=== PATIENT | male | born 1975 | race Caucasian/White ===

== ENCOUNTER 2023-09-25 05:38 | Emergency (ER) | payer OTHER ==
[~2023-09-25] VITALS: Ht 190.5 cm; Wt 117.9 kg
[2023-09-25] MEDS ORDERED: FLUOXETINE40 MG PO (06:02)
[2023-09-25] MEDS ORDERED: ZESTRIL30 M3 PO (06:02)
[2023-09-25] MEDS ORDERED: SIMVASTATIN40 MG PO (06:02)
[2023-09-25 06:15] LABS: BASO % 0.4 % (0.0-1.0); EOS # 0.1 10*3/uL (0.0-0.4); EOS % 1.1 % (1.0-4.0); HEMATOCRIT 45.3 % (42.0-52.0); LYMPH # 1.3 10*3/uL (1.3-4.4); LYMPH % 12.8 % (27.0-41.0); MEAN CELL VOLUME 97.4 fl (80.0-94.0); MEAN CORPUSCULAR HGB 32.5 pg (27.0-31.0); MEAN CORPUSCULAR HGB CONC 33.3 g/dl (33.0-37.0); MEAN PLATELET VOLUME 8.8 fl (9.6-12.3); MONO # 0.5 10*3/uL (0.1-1.0); MONO % 5.1 % (3.0-9.0); NEUT # 8.4 10*3/uL (2.3-7.9); NEUT % 80.2 % (47.0-73.0); PLATELET COUNT AUTOMATED 261 10*3/uL (130-400); RED BLOOD COUNT 4.65 10*6/uL (4.50-5.90); RED CELL DISTRI WIDTH 13.2 % (0-14.5); WHITE BLOOD COUNT 10.4 10*3/uL (4.8-10.8)
[2023-09-25 06:35] LABS: ALKALINE PHOSPHATASE 87 U/L (46-116); BUN 19 mg/dl (9-23); CHLORIDE 107 mmol/L (98-107); POTASSIUM 4.3 mmol/L (3.4-5.1); SGPT/ALT 26 U/L (5-49); TOTAL PROTEIN 7.2 gm/dL (6.0-8.0)
[2023-09-25 07:51] LABS: BILIRUBIN Negative (Negative); BLOOD 3+ (Negative); CLARITY Clear (Clear); COLOR Yellow (Yellow); GLUCOSE Negative (Negative); KETONE 1+ (Negative); LEUKO ESTERASE Negative (Negative); NITRITE Negative (Negative); SPECIFIC GRAVITY 1.025 (1.001-1.030)
[2023-09-25 07:55] LABS: PH 8.5 (4.5-8.0)
[2023-09-25] MEDS ORDERED: OXAYDO5 MG PO (08:04)
[2023-09-25 08:05] LABS: BACTERIA 1+; RBC TNTC rbc/hpf (0-2)
[2023-09-25 08:06] LABS: MUCOUS 1+; WBC 0-2 wbc/hpf (0-5)
== END 2023-09-25 08:01 | disposition home or self-care (01) ==
LOC: ED 05:38
PROVIDERS: Emergency Medicine
DX: N20.0 Calculus of kidney (principal); Z88.6 Allergy status to analgesic agent; Z88.8 Allergy status to other drugs, medicaments and biological substances